=== PATIENT | male | born 1985 | race Asian ===

== ENCOUNTER 2023-03-13 12:27 | Inpatient (IN) | payer MEDICAID ==
[~2023-03-13] VITALS: Ht 170.2 cm; Wt 78.0 kg
[2023-03-13 13:53] LABS: HEMOGLOBIN 8.4 g/dl (14.0-17.9); LYMPHOCYTES # (AUTO) 0.7 X10'3 (1.1-4.8); WHITE BLOOD COUNT 19.5 X10'3 (4.5-11.0)
[2023-03-13 13:55] LABS: BASOPHILS # (AUTO) 0.1 X10'3 (0-0.2); BASOPHILS % (AUTO) 0.4 % (0-1); EOSINOPHILS % (AUTO) 0.1 % (0-6); HEMATOCRIT 25.8 % (42.0-52.0); LYMPHOCYTES % (AUTO) 3.7 % (21-51); MEAN CORPUSCULAR HEMOGLOBIN 30.7 PG (27.0-31.0); MEAN CORPUSCULAR HGB CONC 32.8 g/dL (33.0-36.5); MEAN CORPUSCULAR VOLUME 93.8 FL (78-98); MEAN PLATELET VOLUME 7.7 FL (7.4-10.4); MONOCYTES # (AUTO) 1.4 X10'3 (0-0.9); MONOCYTES % (AUTO) 7.1 % (2-12); NEUTROPHILS # (AUTO) 17.3 X10'3 (1.8-7.7); NEUTROPHILS % (AUTO) 88.7 % (42-75); PLATELET COUNT 612 X10'3 (140-440); RED BLOOD COUNT 2.75 X10'6 (4.70-6.10)
[2023-03-13 14:07] LABS: ALANINE AMINOTRANSFERASE 32 U/L (12-78); ALKALINE PHOSPHATASE 85 IU/L (46-116); ANION GAP 19 (8-16); BILIRUBIN,TOTAL 16.6 MG/DL (0.1-1.0); BLOOD UREA NITROGEN 35 MG/DL (7-18); BUN/CREATININE RATIO 24.5 (10.0-20.0); CHLORIDE 100 MMOL/L (99-107); CREATININE 1.43 MG/DL (0.60-1.10); LIPASE 33 U/L (16-77); SODIUM 139 MMOL/L (135-145); TOTAL CARBON DIOXIDE 19.8 MMOL/L (24-32); eCRCL 67 ML/MIN; eGFR 56 ML/MIN
[2023-03-13] MEDS ORDERED: normal saline 1000ML IV soln IVB ONE (14:10)
[2023-03-13 14:15] LABS: ALBUMIN/GLOBULIN RATIO 1.4 (1.1-1.5); ASPARTATE AMINO TRANSFERASE 40 U/L (10-37); GLUCOSE 141 MG/DL (70-104); POTASSIUM 4.3 MMOL/L (3.5-5.1); TOTAL PROTEIN 8.6 G/DL (6.4-8.2)
[2023-03-13 15:10] LABS: BILIRUBIN,URINE LARGE (Neg); CLARITY,URINE CLOUDY (Clear); COLOR,URINE AMBER (Yellow); GLUCOSE, URINE 100 mg/dl (Neg); KETONES,URINE >=80 mg/dl (Neg); LEUKOCYTE ESTERASE ,URINE NEGATIVE (Neg); OCCULT BLOOD,URINE TRACE-INTACT (Neg); PROTEIN,URINE 100 mg/dl (Neg); UROBILINOGEN,URINE >=8.0 E.U/dL (0.2-1.0)
[2023-03-13 15:14] LABS: UA COLLECTION TYPE URINAL
[2023-03-13 15:23] LABS: NITRITES, URINE NEGATIVE (Neg)
[2023-03-13 15:25] LABS: BACTERIA,URINE 2+ /HPF (Neg); HYALINE CASTS >30 /LPF (NEGATIVE)
[2023-03-13 15:28] LABS: SQUAMOUS EPITHELIAL CELL,UR FEW /LPF (FEW)
[2023-03-13 15:30] LABS: RBC,URINE 0-2 /HPF (0-2)
[2023-03-13 17:02] LABS: NUCLEATED RED BLOOD CELLS 2 /100WBC (0-0); TOTAL CELLS COUNTED 100
[2023-03-13 17:03] LABS: ANISOCYTOSIS 1+; PLATELET ESTIMATE INCREASED; POLYCHROMASIA 3+
[2023-03-13 17:07] LABS: LARGE PLATELETS MODERATE; SPHEROCYTES 2+
[2023-03-13] MEDS ORDERED: normal saline 1000ML IV soln IV ONE (17:10)
[2023-03-13] MEDS ORDERED: piperacillin/tazo 3.375gm/50ml 50 ML IV ONE (17:10)
[2023-03-13] MEDS ORDERED: acetaminophen 325mg tablet PO PRN ×2 (18:05)
[2023-03-13] MEDS ORDERED: magnesium hydroxide 30ml (MOM) UD suspension PO PRN (18:05)
[2023-03-13] MEDS ORDERED: mag hydrox/Alum hydrox/simeth 30ml oral suspension PO PRN (18:05)
[2023-03-13] MEDS ORDERED: HYDROcodone/acetaminophen 10/325mg tab PO PRN (18:05)
[2023-03-13] MEDS ORDERED: magnesium 4gm in 100ml NS 100 ML IV PRN (18:05)
[2023-03-13] MEDS ORDERED: acetaminophen 650mg rectal suppository RC PRN (18:05)
[2023-03-13] MEDS ORDERED: ondansetron/PF 4mg/2ml inj IV PRN (18:05)
[2023-03-13] MEDS ORDERED: HYDROcodone/acetaminophen 5mg/325mg tablet PO PRN (18:05)
[2023-03-13] MEDS ORDERED: diphenhydrAMINE 25mg capsule PO PRN (18:05)
[2023-03-13] MEDS ORDERED: potassium Cl 20 mEq SR tablet PO PRN ×2 (18:05)
[2023-03-13] MEDS ORDERED: morphine 2 MG/ML inj. syringe IV PRN ×2 (18:05)
[2023-03-13] MEDS ORDERED: magnesium Cl slow-release 64mg tablet PO PRN (18:05)
[2023-03-13] MEDS ORDERED: bisacodyl 10mg suppository rectal RC PRN (18:05)
[2023-03-13] MEDS ORDERED: potassium Cl 40MEQ/1/2NS 520ml 520 ML IV PRN (18:05)
[2023-03-13] MEDS ORDERED: magnesium 2GM in 50ml NS 50 ML IV PRN (18:05)
[2023-03-13 18:24] LABS: ETHANOL < 10 MG/DL (<10); MAGNESIUM 2.3 MG/DL (1.5-2.4)
[2023-03-13 18:27] LABS: ACETAMINOPHEN < 2.0 UG/ML (10-30)
[2023-03-13 18:33] LABS: APTT 30 SECONDS (22-32); INR 1.2 INR; PROTHROMBIN TIME 12.3 SECONDS (9.0-12.0)
[2023-03-13] MEDS: K and/or MAG REPLACEMENT MC SCH (20:33)
[2023-03-13] MEDS: docusate sod 100mg capsule PO SCH (20:37)
[2023-03-13] MEDS: normal saline 1000ml 1,000 ML IV SCH (20:37)
[2023-03-13] MEDS: heparin, porcine 5000 units/ml vial SQ SCH (20:38)
[2023-03-14] VITALS (8 sets, daily range): BP systolic 97–115; BP diastolic 61–75; PULSE 93–115; RESP 14–18; TEMP 98–98.9; O2SAT 98–100
[2023-03-14] MEDS: piperacillin/tazo 3.375gm/50ml 50 ML IV SCH ×4 (00:19→23:35)
[2023-03-14] MEDS: normal saline 1000ml 1,000 ML IV SCH ×2 (04:05→07:43)
[2023-03-14] MEDS: docusate sod 100mg capsule PO SCH ×2 (08:00→20:07)
[2023-03-14] MEDS: K and/or MAG REPLACEMENT MC SCH ×2 (08:00→20:00)
[2023-03-14] MEDS: heparin, porcine 5000 units/ml vial SQ SCH ×2 (08:00→20:07)
[2023-03-14 08:06] LABS: BASOPHILS # (AUTO) 0.1 X10'3 (0-0.2); BASOPHILS % (AUTO) 0.9 % (0-1); EOSINOPHILS # (AUTO) 0.1 X10'3 (0-0.9); EOSINOPHILS % (AUTO) 1.1 % (0-6); LYMPHOCYTES # (AUTO) 2.1 X10'3 (1.1-4.8); LYMPHOCYTES % (AUTO) 21.6 % (21-51); MEAN CORPUSCULAR HEMOGLOBIN 31.8 PG (27.0-31.0); MEAN CORPUSCULAR VOLUME 96.4 FL (78-98); MEAN PLATELET VOLUME 7.7 FL (7.4-10.4); MONOCYTES # (AUTO) 0.7 X10'3 (0-0.9); MONOCYTES % (AUTO) 6.9 % (2-12); NEUTROPHILS # (AUTO) 6.7 X10'3 (1.8-7.7); NEUTROPHILS % (AUTO) 69.5 % (42-75); PLATELET COUNT 469 X10'3 (140-440); RED BLOOD COUNT 2.02 X10'6 (4.70-6.10); RED CELL DISTRIBUTION WIDTH 21.9 % (11.5-14.5); WHITE BLOOD COUNT 9.7 X10'3 (4.5-11.0)
[2023-03-14 08:11] LABS: HEMATOCRIT 19.4 % (42.0-52.0); HEMOGLOBIN 6.4 g/dl (14.0-17.9)
[2023-03-14 08:22] LABS: ALANINE AMINOTRANSFERASE 26 U/L (12-78); ALBUMIN 4.1 G/DL (3.4-5.0); ALKALINE PHOSPHATASE 65 IU/L (46-116); ANION GAP 14 (8-16); BILIRUBIN,TOTAL 17.5 MG/DL (0.1-1.0); BLOOD UREA NITROGEN 18 MG/DL (7-18); CALCIUM 8.8 MG/DL (8.5-10.1); CHLORIDE 106 MMOL/L (99-107); HDL CHOLESTEROL 17 MG/DL (35-60); LDL CHOLESTEROL 63 MG/DL (50-100); MAGNESIUM 2.1 MG/DL (1.5-2.4); SODIUM 140 MMOL/L (135-145); TOTAL CARBON DIOXIDE 20.3 MMOL/L (24-32)
[2023-03-14 08:35] LABS: ALBUMIN/GLOBULIN RATIO 1.3 (1.1-1.5); ASPARTATE AMINO TRANSFERASE 43 U/L (10-37); BUN/CREATININE RATIO 29.5 (10.0-20.0); CHOL/HDL RATIO 4.2 (0.00-4.99); CHOLESTEROL 72 MG/DL (0-200); CREATININE 0.61 MG/DL (0.60-1.10); GLUCOSE 84 MG/DL (70-104); PHOSPHORUS 2.9 MG/DL (2.3-4.5); POTASSIUM 3.9 MMOL/L (3.5-5.1); TOTAL PROTEIN 7.2 G/DL (6.4-8.2); TRIGLYCERIDES 166 MG/DL (20-135); eCRCL 157 ML/MIN; eGFR > 90 ML/MIN
[2023-03-14 08:57] LABS: ANISOCYTOSIS 3+; NUCLEATED RED BLOOD CELLS 1 /100WBC (0-0); PLATELET ESTIMATE INCREASED; POLYCHROMASIA 3+; SPHEROCYTES 2+; TOTAL CELLS COUNTED 100
[2023-03-14 08:58] LABS: TEAR DROP CELLS FEW
[2023-03-14 11:23] LABS: OCCULT BLOOD STOOL NEGATIVE (Neg)
[2023-03-14 11:34] LABS: MEAN CORPUSCULAR HEMOGLOBIN 31.5 PG (27.0-31.0); MEAN CORPUSCULAR HGB CONC 32.4 g/dL (33.0-36.5); MEAN CORPUSCULAR VOLUME 97.4 FL (78-98); MEAN PLATELET VOLUME 7.7 FL (7.4-10.4); PLATELET COUNT 466 X10'3 (140-440); RED BLOOD COUNT 1.98 X10'6 (4.70-6.10); RED CELL DISTRIBUTION WIDTH 22.1 % (11.5-14.5)
[2023-03-14 11:48] LABS: HEMATOCRIT 19.2 % (42.0-52.0); HEMOGLOBIN 6.2 g/dl (14.0-17.9)
[2023-03-14 11:52] LABS: RED BLOOD COUNT 1.97 X10'6 (4.70-6.10); RETICULOCYTE % (AUTO) 22.9 % (0.5-1.5)
[2023-03-14 11:56] LABS: % IRON SATURATION 80 % (11-46); IRON 137 UG/DL (53-167); TOTAL IRON BINDING CAPACITY 171 UG/DL (259-388)
[2023-03-14 11:58] LABS: LACTATE DEHYDROGENASE 672 U/L (85-227)
[2023-03-14 12:23] LABS: HIV ANTIBODY 1&2 RAPID NON-REACTIVE (Neg)
[2023-03-14 12:34] LABS: BILIRUBIN,DIRECT 8.9 MG/DL (0-0.3)
[2023-03-14] MEDS: predniSONE 20 mg tablet PO SCH (14:09)
[2023-03-14 14:27] LABS: CLARITY,URINE CLEAR (Clear); COLOR,URINE AMBER (Yellow)
[2023-03-14 14:30] LABS: UA COLLECTION TYPE CLN CATCH MIDSTREAM
[2023-03-14 14:42] LABS: BACTERIA,URINE NONE SEEN /HPF (Neg); MUCUS STRANDS NONE SEEN /LPF (Neg); RBC,URINE 0-2 /HPF (0-2); SQUAMOUS EPITHELIAL CELL,UR NONE SEEN /LPF (FEW); WBC,URINE NONE SEEN /HPF (0-4)
[2023-03-14 14:49] LABS: URINE AMPHETAMINE SCREEN NEGATIVE (Neg); URINE BARBITUATE SCREEN NEGATIVE (Neg); URINE BENZODIAZEPINES SCREEN NEGATIVE (Neg); URINE CANNABINOID SCREEN POSITIVE (Neg); URINE COCAINE SCREEN NEGATIVE (Neg); URINE METHADONE SCREEN NEGATIVE (Neg); URINE OPIATE SCREEN NEGATIVE (Neg); URINE PHENCYCLIDINE SCREEN NEGATIVE (Neg)
[2023-03-14] MEDS ORDERED: diphenhydrAMINE 50 mg/ml inj IV ONE (17:15)
[2023-03-14] MEDS ORDERED: diphenhydrAMINE 25mg capsule PO ONE (17:30)
[2023-03-14] MEDS ORDERED: NORMAL SALINE IV PRN (18:00)
[2023-03-14] MEDS ORDERED: SINCALIDE IV PRN (18:00)
[2023-03-15] VITALS (10 sets, daily range): BP systolic 92–115; BP diastolic 53–77; PULSE 83–103; RESP 16–18; TEMP 97.4–99.3; O2SAT 98–100
[2023-03-15 04:17] LABS: BASOPHILS % (AUTO) 0.3 % (0-1); EOSINOPHILS % (AUTO) 0 % (0-6); MONOCYTES # (AUTO) 0.2 X10'3 (0-0.9)
[2023-03-15 04:20] LABS: LYMPHOCYTES # (AUTO) 1.2 X10'3 (1.1-4.8); LYMPHOCYTES % (AUTO) 16.4 % (21-51); MEAN CORPUSCULAR HEMOGLOBIN 31.9 PG (27.0-31.0); MEAN CORPUSCULAR HGB CONC 33.4 g/dL (33.0-36.5); MEAN CORPUSCULAR VOLUME 95.5 FL (78-98); MEAN PLATELET VOLUME 7.8 FL (7.4-10.4); MONOCYTES % (AUTO) 2.7 % (2-12); NEUTROPHILS # (AUTO) 6.1 X10'3 (1.8-7.7); NEUTROPHILS % (AUTO) 80.6 % (42-75); PLATELET COUNT 399 X10'3 (140-440); RED BLOOD COUNT 2.13 X10'6 (4.70-6.10); RED CELL DISTRIBUTION WIDTH 18.9 % (11.5-14.5); WHITE BLOOD COUNT 7.6 X10'3 (4.5-11.0)
[2023-03-15 04:22] LABS: ALANINE AMINOTRANSFERASE 41 U/L (12-78); ALBUMIN 3.5 G/DL (3.4-5.0); ALKALINE PHOSPHATASE 55 IU/L (46-116); ANION GAP 9 (8-16); ASPARTATE AMINO TRANSFERASE 37 U/L (10-37); BILIRUBIN,TOTAL 8.1 MG/DL (0.1-1.0); BLOOD UREA NITROGEN 11 MG/DL (7-18); BUN/CREATININE RATIO 12.5 (10.0-20.0); CALCIUM 8.9 MG/DL (8.5-10.1); CHLORIDE 108 MMOL/L (99-107); CREATININE 0.88 MG/DL (0.60-1.10); GLUCOSE 179 MG/DL (70-104); MAGNESIUM 2.3 MG/DL (1.5-2.4); POTASSIUM 3.8 MMOL/L (3.5-5.1); SODIUM 143 MMOL/L (135-145); TOTAL CARBON DIOXIDE 25.6 MMOL/L (24-32); eCRCL 109 ML/MIN; eGFR > 90 ML/MIN
[2023-03-15 04:31] LABS: HEMATOCRIT 20.3 % (42.0-52.0); HEMOGLOBIN 6.8 g/dl (14.0-17.9)
[2023-03-15 04:38] LABS: ALBUMIN/GLOBULIN RATIO 1.1 (1.1-1.5); PHOSPHORUS 2.9 MG/DL (2.3-4.5); TOTAL PROTEIN 6.6 G/DL (6.4-8.2)
[2023-03-15] MEDS: normal saline 1000ml 1,000 ML IV SCH ×2 (06:05→16:42)
[2023-03-15] MEDS: heparin, porcine 5000 units/ml vial SQ SCH ×2 (07:26→20:18)
[2023-03-15] MEDS: piperacillin/tazo 3.375gm/50ml 50 ML IV SCH ×2 (07:27→16:42)
[2023-03-15] MEDS: K and/or MAG REPLACEMENT MC SCH ×2 (08:00→20:12)
[2023-03-15] MEDS: docusate sod 100mg capsule PO SCH ×2 (08:00→20:24)
[2023-03-15 08:46] LABS: TRANSFERRIN 140 mg/dL (177-329)
[2023-03-15 08:46] LABS: HBSAG SCREEN Negative (Negative)
[2023-03-15] MEDS: predniSONE 20 mg tablet PO SCH (09:52)
[2023-03-15] MEDS ORDERED: diphenhydrAMINE 50 mg/ml inj IV ONE (11:55)
[2023-03-15 14:13] LABS: HEP A AB, IGM Negative (Negative); HEPATITIS C VIRUS ANTIBODY Non Reactive (Non Reactive)
[2023-03-16] MEDS: piperacillin/tazo 3.375gm/50ml 50 ML IV SCH ×4 (00:25→23:43)
[2023-03-16 05:49] LABS: BASOPHILS % (AUTO) 0.1 % (0-1); EOSINOPHILS % (AUTO) 0 % (0-6); NEUTROPHILS # (AUTO) 9.3 X10'3 (1.8-7.7); RED CELL DISTRIBUTION WIDTH 19.7 % (11.5-14.5)
[2023-03-16 05:53] LABS: HEMATOCRIT 24.7 % (42.0-52.0); LYMPHOCYTES # (AUTO) 1.8 X10'3 (1.1-4.8); LYMPHOCYTES % (AUTO) 14.7 % (21-51); MEAN CORPUSCULAR HEMOGLOBIN 30.7 PG (27.0-31.0); MEAN CORPUSCULAR HGB CONC 32.4 g/dL (33.0-36.5); MEAN CORPUSCULAR VOLUME 94.6 FL (78-98); MEAN PLATELET VOLUME 7.8 FL (7.4-10.4); MONOCYTES # (AUTO) 0.9 X10'3 (0-0.9); MONOCYTES % (AUTO) 7.3 % (2-12); NEUTROPHILS % (AUTO) 77.9 % (42-75); PLATELET COUNT 397 X10'3 (140-440); RED BLOOD COUNT 2.61 X10'6 (4.70-6.10); WHITE BLOOD COUNT 11.9 X10'3 (4.5-11.0)
[2023-03-16 05:56] LABS: ALANINE AMINOTRANSFERASE 37 U/L (12-78); ALBUMIN 3.3 G/DL (3.4-5.0); ALKALINE PHOSPHATASE 56 IU/L (46-116); ANION GAP 9 (8-16); ASPARTATE AMINO TRANSFERASE 21 U/L (10-37); BILIRUBIN,TOTAL 3.3 MG/DL (0.1-1.0); BLOOD UREA NITROGEN 11 MG/DL (7-18); BUN/CREATININE RATIO 12.1 (10.0-20.0); CALCIUM 8.8 MG/DL (8.5-10.1); CHLORIDE 108 MMOL/L (99-107); CREATININE 0.91 MG/DL (0.60-1.10); GLUCOSE 128 MG/DL (70-104); POTASSIUM 3.8 MMOL/L (3.5-5.1); SODIUM 143 MMOL/L (135-145); TOTAL CARBON DIOXIDE 26.3 MMOL/L (24-32); eCRCL 105 ML/MIN; eGFR > 90 ML/MIN
[2023-03-16 06:00] VITALS: BP 126/81; PULSE 72; RESP 16; TEMP 98.1; O2SAT 99
[2023-03-16 06:12] LABS: PHOSPHORUS 1.8 MG/DL (2.3-4.5)
[2023-03-16 06:36] LABS: ALBUMIN/GLOBULIN RATIO 1.3 (1.1-1.5); TOTAL PROTEIN 5.8 G/DL (6.4-8.2)
[2023-03-16 08:00] VITALS: RESP 16; O2SAT 98
[2023-03-16] MEDS: K and/or MAG REPLACEMENT MC SCH ×2 (08:00→20:00)
[2023-03-16] MEDS: docusate sod 100mg capsule PO SCH ×2 (08:00→20:00)
[2023-03-16 08:30] LABS: ANISOCYTOSIS 2+; NUCLEATED RED BLOOD CELLS 2 /100WBC (0-0); PLATELET ESTIMATE NORMAL; TOTAL CELLS COUNTED 100
[2023-03-16] MEDS: predniSONE 20 mg tablet PO SCH (08:32)
[2023-03-16 08:33] LABS: BURR CELLS 1+; POLYCHROMASIA 3+
[2023-03-16 10:00] VITALS: BP 114/77; PULSE 76; RESP 14; TEMP 98; O2SAT 98
[2023-03-16] MEDS: normal saline 1000ml 1,000 ML IV SCH (17:28)
[2023-03-16 18:00] VITALS: BP 108/67; PULSE 66; RESP 16; TEMP 97.1; O2SAT 98
[2023-03-16 19:40] VITALS: RESP 16; O2SAT 98
[2023-03-16 22:00] VITALS: BP 100/58; PULSE 68; RESP 16; TEMP 98; O2SAT 97
[2023-03-17 06:20] LABS: HEMATOCRIT 27.2 % (42.0-52.0); HEMOGLOBIN 8.8 g/dl (14.0-17.9); MEAN CORPUSCULAR HEMOGLOBIN 31.3 PG (27.0-31.0); MEAN PLATELET VOLUME 8.2 FL (7.4-10.4)
[2023-03-17 06:22] LABS: ALANINE AMINOTRANSFERASE 44 U/L (12-78); ALBUMIN 3.4 G/DL (3.4-5.0); ALBUMIN/GLOBULIN RATIO 1.2 (1.1-1.5); ALKALINE PHOSPHATASE 48 IU/L (46-116); ANION GAP 12 (8-16); ASPARTATE AMINO TRANSFERASE 22 U/L (10-37); BASOPHILS % (AUTO) 0.3 % (0-1); BILIRUBIN,TOTAL 2.7 MG/DL (0.1-1.0); BLOOD UREA NITROGEN 14 MG/DL (7-18); BUN/CREATININE RATIO 16.3 (10.0-20.0); CALCIUM 8.2 MG/DL (8.5-10.1); CHLORIDE 109 MMOL/L (99-107); CREATININE 0.86 MG/DL (0.60-1.10); EOSINOPHILS % (AUTO) 0.1 % (0-6); GLUCOSE 75 MG/DL (70-104); MEAN CORPUSCULAR HGB CONC 32.4 g/dL (33.0-36.5); MEAN CORPUSCULAR VOLUME 96.6 FL (78-98); MONOCYTES # (AUTO) 0.9 X10'3 (0-0.9); MONOCYTES % (AUTO) 7.7 % (2-12); NEUTROPHILS % (AUTO) 66.9 % (42-75); PHOSPHORUS 4.3 MG/DL (2.3-4.5); PLATELET COUNT 392 X10'3 (140-440); RED BLOOD COUNT 2.81 X10'6 (4.70-6.10); RED CELL DISTRIBUTION WIDTH 20.9 % (11.5-14.5); SODIUM 145 MMOL/L (135-145); TOTAL CARBON DIOXIDE 23.9 MMOL/L (24-32); TOTAL PROTEIN 6.3 G/DL (6.4-8.2); WHITE BLOOD COUNT 11.9 X10'3 (4.5-11.0); eCRCL 111 ML/MIN; eGFR > 90 ML/MIN
[2023-03-17] MEDS ORDERED: ceFAZolin 1000mg inj ONE (06:56)
[2023-03-17] MEDS ORDERED: BUPIVAcaine 2.5mg/ml inj 50ml vial (contains preservative) ONE (06:56)
[2023-03-17] MEDS ORDERED: magnesium Cl slow-release 64mg tablet PO PRN (07:05)
[2023-03-17] MEDS ORDERED: magnesium 4gm in 100ml NS 100 ML IV PRN (07:05)
[2023-03-17] MEDS ORDERED: potassium Cl 20 mEq SR tablet PO PRN (07:05)
[2023-03-17] MEDS ORDERED: potassium Cl 40MEQ/1/2NS 520ml 520 ML IV PRN (07:05)
[2023-03-17] MEDS ORDERED: magnesium 2GM in 50ml NS 50 ML IV PRN (07:05)
[2023-03-17] MEDS: piperacillin/tazo 3.375gm/50ml 50 ML IV SCH (07:20)
[2023-03-17] MEDS: docusate sod 100mg capsule PO SCH (07:21)
[2023-03-17] MEDS: K and/or MAG REPLACEMENT MC SCH (07:22)
[2023-03-17] MEDS: predniSONE 20 mg tablet PO SCH (07:30)
[2023-03-17] MEDS: potassium Cl 20 mEq SR tablet PO PRN ×2 (07:30→13:18)
[2023-03-17 07:48] LABS: NUCLEATED RED BLOOD CELLS 2 /100WBC (0-0); PLATELET ESTIMATE NORMAL; TOTAL CELLS COUNTED 100
[2023-03-17 07:49] LABS: ANISOCYTOSIS 3+; POLYCHROMASIA 3+; TEAR DROP CELLS FEW
[2023-03-17] MEDS ORDERED: K and/or MAG REPLACEMENT MC SCH (08:00)
[2023-03-17 10:00] VITALS: BP 137/78; PULSE 76; RESP 15; TEMP 98.5; O2SAT 98
[2023-03-17] MEDS ORDERED: LEVO750T68 PO (10:46)
[2023-03-17] MEDS ORDERED: PRED10TA23 PO (10:46)
[2023-03-17] MEDS ORDERED: PANT40TA54 PO (10:46)
[2023-03-17] MEDS ORDERED: MECO10005 PO (12:58)
[2023-03-17] MEDS ORDERED: FOLI0.4T6 PO (12:58)
[2023-03-17] MEDS ORDERED: FERR324T4 PO (12:58)
== END 2023-03-17 14:05 | disposition home or self-care (01) | DRG 720 ==
LOC: ER 12:28 → ED HOLD 18:07 → ORTHO 4S 03-14 15:50
PROVIDERS: ADMIT Family Medicine; ATTEND Family Medicine
PROC: 30233N1 Transfusion of Nonautologous Red Blood Cells into Peripheral Vein, Percutaneous Approach (ICD-10-PCS; principal; 2023-03-14)
PROC: BW211ZZ Computerized Tomography (CT Scan) of Abdomen and Pelvis using Low Osmolar Contrast (ICD-10-PCS; 2023-03-14)
PROC: 05HY33Z Insertion of Infusion Device into Upper Vein, Percutaneous Approach (ICD-10-PCS; 2023-03-14)
DX: A41.9 Sepsis, unspecified organism (principal); N17.0 Acute kidney failure with tubular necrosis; K80.00 Calculus of gallbladder with acute cholecystitis without obstruction; R17 Unspecified jaundice; D58.9 Hereditary hemolytic anemia, unspecified; K82.8 Other specified diseases of gallbladder; E80.6 Other disorders of bilirubin metabolism; Z59.00 Homelessness unspecified; Z87.891 Personal history of nicotine dependence; Z79.899 Other long term (current) drug therapy
CPT/HCPCS: 36410; 36415; 36430; 71250; 74176; 74181; 76700; 76937; 78226; 80053; 80061; 80305; 80320; 80329; 81001; 82140; 82248; 82272; 82607; 83010; 83036; 83540; 83550; 83605; 83615; 83690; 83735; 84100; 84145; 84466; 85007; 85025; 85027; 85045; 85610; 85730; 86703; 86709; 86803; 86870; 86880; 86885; 86900; 86901; 86922; 87040; 87081; 87088; 87340; 87522; 99285; A6258; A9537; C1751; C2617; G0378; J0690; J1200; J1644; J2543; J3490; J7030; J7040; J7512; P9016